=== PATIENT | female | born 1965 | race Caucasian/White ===

== ENCOUNTER 2017-02-16 10:40 | Emergency (ER) | payer SELFPAY ==
[~2017-02-16] VITALS: Ht 162.6 cm; Wt 58.1 kg
[~2017-02-16 10:40] MED LIST: HYDROCODONE-APA1 TA2 PO; LISINOPRIL/HCTZ1 TAB PO; METOPROLOL 25 M25 MG PO; NAPROSYN500 M1 PO; ROBAXIN-750750 MG PO
--- NOTE | 2017-02-16 11:11 | Emergency Room Report ---
History of Present Illness Time Seen by 105John Presenting Problem in Triage Pt arrived:Walked Presenting Problem:PT REPORTS PAIN IN ANITA PELVIC AREA X1 WEEK, DECRIBES PAIN AT CONSTANT DULL PAIN, STATES PAIN IS WORSE ON L THAN RIGHT. 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 N Clinical Suspician of Infection? N Mental Status: 1 - Regular (Normal Baseline) Sepsis Risk:Possible Sepsis Risk Have you (or family members/close friends) recently traveled outside the [place]? N If Yes, where/when: Have you had exposure to infectious disease within the past month? N TB? Other? Specify: 51 years old white female with history of ovarian cysts. She developed LEFT sided abdominal pain a week ago this progressively getting worse. Using a lot of Tylenol and Goody powders and she's vomited this morning. She has been out of her blood pressure medicine for the last months because she can't afford it. She denies having diarrhea or constipation. She denies having hematuria or dysuria. She denies having vaginal bleeding. There is no chest pain palpitations or shortness of breath. Source patient, RN notes reviewed Exam Limitations no limitations ALLERGIES Coded Allergies: gabapentin (NA-NAUSEA/VOMITING 02/16/17) naproxen (NA-NAUSEA/VOMITING 02/16/17) Home Medications Reported Medications No Known Home Medications History Medical History General CAD? No Angina: No NC: No Hypertension? Yes Hyperlipidemia? No CHF? No COPD? No Asthma? No Thyroid Problems? No Hypothyroidism? No CVA? No Seizures? No Diabetes? No Renal Insuffiency? No End Stage Renal Disease? No UTI? No Stones? No GB Disease: No Nephritic Syndrome? No Asplenia? No Hepatitis? No Sickle Cell Disease? No Arthritis? No Migraines? No Cataracts? No Glaucoma? No MRSA? No HIV? No TB? No Anxiety? No Depression? No Cancer? No More? 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 Respiratory no symptoms reported Cardiovascular no symptoms reported Gastrointestinal see HPI, abdominal pain, vomiting Genitourinary no symptoms reported. Musculoskeletal no symptoms reported Skin no symptoms reported Psychiatric/Neurological no symptoms reported Physical Exam Vital Signs Vital Signs Date Time Temp Pulse Resp B/P Pulse O2 O2 Flow FiO2 Ox Delivery Rate 02/16 1433 94 20 179/105 99 02/16 1251 97 20 183/110 100 02/16 1136 121 20 183/112 100 02/16 1124 20 02/16 1042 97.8 139 20 195/105 99 - WBC >12,000 or <4,000 or 10% bands? 2 or more SIRS Criteria Met? B/P:195/105 MAP:156 Creatinine >2.0? UA output<0.5ml/kg/hr for 2 hrs? Platelet count >100,000? Lactate >2.0mmol/1? INR >1.2 or PTT > than 60 sec? Evidence of Organ Dysfunction? Provider documented clinical suspician of infection? N Sepsis Criteria Count: 2 Sepsis Risk: Possible Sepsis Risk General Appearance normal appearance, WD/WN, moderate distress (secondary to abdominal pain) Eye Exam - bilateral eye normal exam, bilateral eye PERRL, bilateral eye EOMI Ear, Nose, Throat hearing grossly normal, normal ENT inspection Neck normal inspection, non-tender, supple, full range of motion Respiratory Status Yes: trachea midline, chest symmetrical, non tender chest. No: respiratory distress. Lung Sounds bilateral: normal breath sounds, lungs clear. Cardiovascular normal exam, regular rate/rhythm, no peripheral edema, no gallop, no JVD, no murmur, no rub, normal peripheral pulses Peripheral Pulses Pulses normal Yes Peripheral Pulses 4+ radial (R), 4+ radial (L), 4+ femoral (R), 4+ femoral (L) Gastrointestinal normal bowel sounds, soft, no organomegaly, no guarding, no rebound, the patient was pointing to the LEFT side of the abdomen prior to examination as an area of maximum tenderness. That by manual examination the patient area of maximum tenderness was in the RIGHT lower quadrant with no rebound, she had no cross tenderness, she had positive bowel sounds. Back normal inspection, no CVA tenderness, no vertebral tenderness Extremities non-tender, normal range of motion, normal inspection Rectal normal exam (full rectum) Nurse present during exam? Yes Pelvic normal external exam, normal internal exam, normal adnexa, no cerv. motion tender, no masses, bimanual examination revealed normal vulva and vagina cervix is firm and closed uterus is within normal limits no adnexal masses and tenderness. 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 No Results/Orders Laboratory Tests 02/16/17 1115: Magnesium 2.3 02/16/17 1115: Sodium 144, Potassium 4.1, Chloride 107, Carbon Dioxide 26, BUN 13, Creatinine 1.0, Estimated Creat Clear 61, Estimated GFR (MDRD) 58 L, Glucose 98, Calcium 9.8, Total Bilirubin 0.2, AST 28, ALT 36, Alkaline Phosphatase 76, Creatine Kinase 77, CK-MB (CK-2) Rel Index 1.0, CK and CKMB Interp 0.8, Troponin I < 0.02 , Total Protein 8.8 H, Albumin 4.6, Globulin 4.2 H, Albumin/Globulin Ratio 1.1 , WBC 13.1 H, RBC 4.91, Hgb 14.9, Hct 45.4, MCV 92.5, RDW 13.2, Plt Count 352, MPV 8.3, Gran % 79.6, Gran # 10.4 H, Lymphocytes % 16.9, Monocytes % 2.4, Eosinophils % 0.7, Basophils % 0.5, Lymphocytes # 2.2, Monocytes # 0.3, Eosinophils # 0.1, Basophils # 0.1, PUBS MCHC 32.9, MCH 30.4 Current Medication Orders Sig/Carito Start time Last Medication Dose Route Stop Time Status Admin Iopamidol 75 ML ONCE ONE 02/16 1400 DC 02/16 IV 02/16 1401 1358 Sodium Chloride 10 ML PRN PRN 02/16 1400 AC 02/16 IV 02/16 1527 1358 Lisinopril 20 MG ONCE ONE 02/16 1200 DC 02/16 PO 02/16 1201 1156 Sodium Chloride 1,000 ML .Q1H1M 02/16 1200 DC 02/16 IV 02/16 1300 1157 Sodium Chloride 10 ML PRN PRN 02/16 1200 AC IV 02/17 1150 Sodium Chloride 1,000 ML .STK-MED ONE 02/16 1154 DC IV Lisinopril 0 .STK-MED ONE 02/16 1153 DC .ROUTE Diatrizoate Meglum/ 30 ML ONCE ONE 02/16 1130 DC 02/16 Diatrizoate Sod PO 02/16 1131 1124 Morphine Sulfate 2 MG ONCE ONE 02/16 1130 DC 02/16 IV 02/16 1131 1124 Famotidine 0 .STK-MED ONE 02/16 1124 DC IV Diatrizoate Meglum/ 0 .STK-MED ONE 02/16 1123 DC Diatrizoate Sod .ROUTE Morphine Sulfate 0 .STK-MED ONE 02/16 1123 DC .ROUTE Ondansetron HCl 0 .STK-MED ONE 02/16 1123 DC .ROUTE Famotidine 20 MG ONCE ONE 02/16 1115 DC 02/16 IV 02/16 1116 1124 Morphine Sulfate 2 MG [id number] PRN 02/16 1115 CAN IV Ondansetron HCl 4 MG ONCE ONE 02/16 1115 DC 02/16 IV 02/16 1116 1124 Sodium Chloride 8 ML ONCE ONE 02/16 1115 DC IV 02/16 1116 Sodium Chloride 10 ML PRN PRN 02/16 1100 AC IV 02/17 1052 Orders Procedure Date/time Status DIET-NOTHING BY MOUTH 02/16 L Active MAGNESIUM 02/16 1151 Complete ELECTROCARDIOGRAM REQUEST 02/[address] ABD/PELVIS REQ 02/16 1052 Complete IV SALINE LOCK 02/16 1052 Active CBC WITH AUTO DIFF 02/16 1052 Complete CARDIAC ENZYMES 02/16 1052 Complete CHEM 12 PROFILE 02/16 1052 Complete CM/EKG CM/EKG EKG NSR, rhythm, no evid. of ischemic chgs, no ectopy, normal QRS, normal MO, normal EKG Comments Sinus tachycardia 1 27/m biatrial enlargement normal QRS and ST segment and T waves no acute findings Departure Departure Time of Disposition 1438 Disposition DC Home or Self Care(routine) Clinical Impression Primary Impression: Abdominal pain of unknown cause Secondary Impressions: Constipation Condition STABLE Referrals Natalio Guzman MD Additional Instructions I reviewed the CT scan report with the patient IMPRESSION: No acute abdominal or pelvic findings. Nonacute findings include 2 isodensity in the spleen and mild amount retained colonic feces. 1- she was advised for more liquids and dried fruits 2- to return for fever and vomiting or worse pain. 3- establish a pcp , i referred her to Dr Guzman 4- bentyl as needed for cramps 5- retuen as needed Discharge Counseling Counseled pt/family regarding diagnosis, test results, medications/RX, home care, follow up needs Prescriptions Current Visit Scripts DICYCLOMINE HCL (Bentyl) 10 MG PO Q8HP PRN cramps #21 [facility] ED Critical Care Critical Care No If Critical Care minutes are documented, the time involved in the performance of seperately reportable procedures was not counted toward critical care time documented. I directly delivered medical care to this critically ill and/or injured patient. Timely evaluation and treatment was necessary to address the significant organ system(s) dysfunction present in this patient. at [id number]
--- OUTSIDE RECORDS SUMMARY | 2017-02-16 11:29 | External Medical Summary Rpt | CCD ---
Author Author CARLOS Address Unknown Phone [email or web address] Purpose Continuity of Care Document - through 2016
--- OUTSIDE RECORDS SUMMARY | 2017-02-16 11:29 | External Medical Summary Rpt | CCD ---
Author Author [employer] Organization [employer] Address Unknown Phone Unavailable Purpose Continuity of Care Document - through 2016
--- OUTSIDE RECORDS SUMMARY | 2017-02-16 11:29 | External Medical Summary Rpt | CCD ---
Author Author , CARLOS GONZALEZ Address Unknown Phone [email or web address] Immunization Name Date Rout CVX Reac Dose Comm Prov Is Faci e tion ent ider Refu lity Give sed n Tdap 02-0 115 999 Hist H191 No H191 , 7-20 oric Adso 13 al rbed Info rmat ion - Sour ce Unsp ecif ied
--- OUTSIDE RECORDS SUMMARY | 2017-02-16 11:29 | External Medical Summary Rpt | CCD ---
Author Author , CARLOS GONZALEZ Address Unknown Phone [email or web address] Immunization Name Date Rout CVX Reac Dose Comm Prov Is Faci e tion ent ider Refu lity Give sed n Tdap 02-0 115 999 Hist H191 No H191 , 7-20 oric Adso 13 al rbed Info rmat ion - Sour ce Unsp ecif ied
--- OUTSIDE RECORDS SUMMARY | 2017-02-16 11:29 | External Medical Summary Rpt | CCD ---
Author Author CARLOS Address Unknown Phone [email or web address] Purpose Continuity of Care Document - through 2016
[2017-02-16 11:31] LABS: HEMOGLOBIN 14.9 g/dL (12.2-16.2); LYMPH # 2.2 K/mm3 (0.7-4.5); LYMPH % 16.9 % (10-50.0)
[2017-02-16 11:58] LABS: BUN 13 mg/dL (7-18)
[2017-02-16 12:04] LABS: GFR (ESTIMATED) 58 ML/MIN (59-)
--- NOTE | 2017-02-16 14:27 | RADIOLOGY REPORT PS360 ---
CT ABD PELVIS W/O CONTRAST CLINICAL INDICATION: Lower abdominal pain and pelvic pain ANITA PELVIC PAIN X1 WEEK ORDERING PHYSICIAN: Jasmyne Bernabe MD PATIENT AGE: 51 years COMPARISON: None TECHNIQUE: Axial images obtained with sagittal and coronal reformats. PROCEDURE: Oral Contrast: Redicat IV Contrast: 75 mL's of Isovue-370 . FINDINGS: Lung bases are clear. The liver, adrenal glands, pancreas, and gallbladder have an unremarkable appearance. The spleen is not enlarged. There is a indeterminate 5 mm isodensity in the posterior aspect of the spleen medially and a 6 mm isodensity in the spleen laterally. These are nonspecific too small to categorize. No intestinal obstruction or free air. No hydronephrosis. No obstructing renal or ureteral calculus. No obvious renal mass. Unremarkable appendix. No evidence of diverticulitis. There is mild amount retained colonic feces in the rectum and sigmoid area. Slight increased soft tissue density is present along the left lateral aspect of the uterus probably related to ovarian tissue. No acute bony anomalies. Sclerotic focus is present along the right aspect of the L4 vertebral body unchanged. IMPRESSION: No acute abdominal or pelvic findings. Nonacute findings include 2 isodensity in the spleen and mild amount retained colonic feces.
[2017-02-16] MEDS ORDERED: BENTYL10 M1 PO (14:42)
[2017-02-16] MEDS ORDERED: Zofran4 MG PO (14:46)
[2017-02-16 15:05] VITALS: BP 179/105
== END 2017-02-16 15:05 | disposition home or self-care (01) ==
LOC: ER 10:40
PROVIDERS: Emergency Medicine
DX: R10.9 Unspecified abdominal pain (principal); K59.00 Constipation, unspecified; F17.210 Nicotine dependence, cigarettes, uncomplicated; I10 Essential (primary) hypertension
CPT/HCPCS: J2405; Q9967